=== PATIENT | female | born 1995 | race Caucasian/White ===

== ENCOUNTER 2024-12-07 09:34 | Emergency (ER) | payer OTHER, SELFPAY ==
[2024-12-07 09:38] VITALS: BP 118/81
[2024-12-07 10:02] VITALS: BMI 21.5
--- NOTE | 2024-12-07 10:32 | ED.GENMED ---
History of Present Illness
General
Chief Complaint: Vaginal Bleeding
Source: patient
Exam Limitations: none
Time Seen by Provider: 12/07/24 09:58
Nursing documentation reviewed up to this point in time: agreed with
History of Present Illness
History of Present Illness:
28-year-old female G1, P1 with vaginal delivery 10/21/2024 6 weeks is having vaginal bleeding going through 1 pad every 1-2 hours. She had a vaginal laceration during delivery, and is concerned it is bleeding.
Past History
Past History
ED Past Medical History: None
ED Past Surgical History: Appendectomy and Orthopedic
Social History
Tobacco: Non-smoker
Alcohol: None
Drug: None
Personal: Single
Living: with family
Employment: Student
Family History
Family History: Other (Mother and grandmother had pulmonary emboli)
Review of Systems
Review of Systems
Allergies reviewed?: Yes
All Other Systems: Not applicable
Constitutional: Reports no symptoms
EENT: Reports no symptoms
Respiratory: Reports no symptoms
Cardiac: Reports no symptoms
ABD/GI: Reports no symptoms
: Reports bleeding
Musculoskeletal: Reports no symptoms
Skin: Reports no symptoms
Neurological: Reports no symptoms
Endocrine: Reports no symptoms
Hematologic/Lymphatic: Reports no symptoms
Psychiatric: Reports no symptoms
Phy Exam
Physical Exam
Physical Exam:
Physical Exam
General: no apparent distress, not acutely ill
Neck: supple. no meningeal signs. normal posterior pharynx
Heart: equal radial pulses.
HEENT: Pupils equal round reactive to light, EOMI
Lungs: no acute respiratory distress. clear bilaterally
Abdomen: normal bowel sounds. not tender. no CVAT
Neuro: alert and oriented. no focal neurological deficits.
Skin: no rash
Psychiatric: well kept. interactive and cooperative
Extremities: no edema. no calf tenderness. negative homans. good distal pulses
Genitourinary Exam Female
Exam Female: no adnexal tenderness and vaginal bleeding
Vaginal Exam: blood
Vaginal Bleeding: minimal
Visual exam of cervix: os closed
Uterus: normal size
Adnexa: Bilateral: Normal
Course
Orders/Labs/Results
Orders:
Orders
12/07/24 09:47
Test Result ONCE
12/07/24 09:50
US Pelvis W Transvag Combined Urgent
Reason For Exam: psot bleeding
12/07/24 10:23
Type+Screen Urgent
Complete Blood Count/With Diff Urgent
HCG, Serum Qualitative Screen Urgent
Comment: Notify provider if positive test present
12/07/24 10:59
ABO2 Routine
BBK Wristband Number:
Associate notified that ABO2 has been ordered: Y
Date: 12/07/24
Time: 10:36
Clothespin Machine Operator ID: [id number]
Abnormal Lab Results
12/07/24
10:23
WBC 4.3 L 10^3/uL
(4.8-10.8)
RBC 4.11 L 10^6/uL
(4.20-5.40)
Hct 36.3 L %
(37.0-47.0)
MCH 31.1 H pg
(27.0-31.0)
RDW 11.2 L %
(11.5-14.5)
MPV 11.8 H fL
(7.4-10.4)
Abs Immat Gran (auto) 0.1 H 10^3/uL
(0-0.05)
Immature Gran % 1.4 H %
(0-0.5)
12/07/24 10:23
Vital Signs
Initial and Last Documented VS:
Initial Vital Signs
Temp Pulse Resp BP Pulse Ox
98.7 F 94 16 118/81 98
12/07/24 09:38 12/07/24 09:38 12/07/24 09:38 12/07/24 09:38 12/07/24 09:38
Last Documented Vital Signs
Temp Pulse Resp BP Pulse Ox
98.7 F 91 16 114/86 98
12/07/24 09:38 12/07/24 12:41 12/07/24 12:41 12/07/24 12:41 12/07/24 12:41
MDM/Problems Addressed
Differential Diagnosis Includes:
retained products of conception, abnormal vaginal bleeding
MDM/Problems Addressed:
28-year-old female with vaginal bleeding, likely menses. Doubt retained products. Stable for discharge. Discussed with Dr. Wheat, who recommends d/c.
*Radiology
Radiology exam reviewed: radiology read reviewed (US pelvis, 8.2 mm endometrium)
*Pulse Oximetry
Patient hypoxic: no
*Critical Care Note
Total Time (30-74mins, 75-104mins- exclusive of procedures): Not Applicable
Patient Management
Social determinants of health affecting care: Living situation and Strong social support
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
Escalation/DeEscalation of care consider admission/obs:
admit not indicated
ED Attending Note
-
Portions of this chart may have been created with voice recognition software.� Occasional wrong word or��sound alike� substitutions may have occurred due to the inherent limitations of voice recognition software.
Discharge Plan
Departure
Patient Disposition: Home (Routine Discharge)
Date of Disposition: 12/07/24
Time of Disposition: 13:03
Patient with high blood pressure during this ER visit?: No
Condition: Good
Discharge Problem:
Vaginal bleeding
Instructions: Heavy periods - ED discharge instructions
Prescriptions:
No Action
Control
1 tab PO DAILY
Referrals:
Veronica Wheat MD [Active] - Call in 1-3 days for appt
NONE,* [Family Provider] -
Interventions
Interventions:
*Risk Screen - Suicide Last Done: 12/07/24 09:38
*General Assessment Last Done: 12/07/24 10:03
*Neglect/Abuse Screening Last Done: 12/07/24 09:38
*ED- Fall Risk Assessment Last Done: 12/07/24 10:03
*ED COVID-19 Vaccine History Last Done: 12/07/24 10:03
ED-Female Genitourinary Assessment Last Done: 12/07/24 10:05
Discharge Date and Time
Print Language: GREEK
[2024-12-07 10:35] LABS: % Basophils 0.9 % (0-2); % Eosinophils 1.2 % (0-6); % Immature Granulocytes 1.4 % (0-0.5); % Monocytes 8.9 % (1.7-9.3); % Neutrophils 52.6 % (42.2-75.2); Absolute Eosinophils 0.1 10^3/uL (0-0.7); Absolute Immature Granulocytes 0.1 10^3/uL (0-0.05); Absolute Lymphocytes 1.5 10^3/uL (1.2-3.4); Absolute Monocytes 0.4 10^3/uL (0.1-0.6); Absolute Neutrophils 2.3 10^3/uL (1.4-6.5); Hematocrit 36.3 % (37.0-47.0); Hemoglobin 12.8 g/dL (12.0-16.0); Mean Corp Hgb Conc. 35.3 g/dL (33.0-37.0); Mean Corpuscular Hgb 31.1 pg (27.0-31.0); Mean Corpuscular Volume 88.3 fL (81.0-99.0); Mean Platelet Volume 11.8 fL (7.4-10.4); Nucleated Red Blood Cells % 0 %; Platelet Count 182 10^3/uL (130-400); Red Blood Cell Count 4.11 10^6/uL (4.20-5.40); Red Cell Dist. Width 11.2 % (11.5-14.5); White Blood Cell Count 4.3 10^3/uL (4.8-10.8)
[2024-12-07 11:13] LABS: HCG, Serum Qualitative Screen Negative
[2024-12-07 12:41] VITALS: BP 114/86
== END 2024-12-07 13:25 | disposition home or self-care (01) ==
LOC: EMR 09:34
PROVIDERS: EMERGENCY PHYSICIAN Emergency Medicine
DX: N93.9 Abnormal uterine and vaginal bleeding, unspecified (principal); Z90.49 Acquired absence of other specified parts of digestive tract
CPT/HCPCS: 99284; 76830; 76856; 84703; 85025; 86850; 86900; 86901